=== PATIENT | female | born 1975 | race Caucasian/White ===

== ENCOUNTER 2018-03-25 17:27 | Emergency (ER) | payer OTHER ==
[~2018-03-25] VITALS: Wt 104.9 kg
[2018-03-25 17:35] VITALS: BP 122/66; PULSE 94; RESP 17
[2018-03-25] MEDS ORDERED: KETOROLAC 60 MG INJ IM STA (19:14)
[2018-03-25] MEDS ORDERED: IBUP-1542 PO (20:17)
[2018-03-25] MEDS ORDERED: CYCL10TA7 PO (20:17)
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
== END 2018-03-25 20:42 | disposition home or self-care (01) ==
LOC: FTE 17:27
DX: S33.5XXA Sprain of ligaments of lumbar spine, initial encounter (principal); S13.9XXA Sprain of joints and ligaments of unspecified parts of neck, initial encounter; V43.52XA Car driver injured in collision with other type car in traffic accident, initial encounter
CPT/HCPCS: 72040; 72100; 81003; 81025; 96372; J1885; Z7502

== ENCOUNTER 2018-11-15 23:19 | Emergency (ER) | payer OTHER ==
[~2018-11-15] VITALS: Ht 167.6 cm; Wt 101.1 kg
[~2018-11-15 23:19] MED LIST: CYCL10TA7 PO; IBUP-1542 PO; OXYC-279 PO
[2018-11-15 23:22] VITALS: Ht 167.6 cm; Wt 101.1 kg
[2018-11-16] MEDS ORDERED: LACTATED RINGER'S 1,000 ML IV STA (00:19)
[2018-11-16] MEDS ORDERED: ONDANSETRON 4 MG INJ IV STA (00:19)
[2018-11-16] MEDS ORDERED: LIDOCAINE/MYLANTA 40 ML BTL PO STA (00:19)
[2018-11-16] MEDS ORDERED: BELLADONNA/PHENOBARBITAL TAB PO STA (00:19)
[2018-11-16] MEDS ORDERED: KETOROLAC 15 MG INJ IV STA (00:19)
[2018-11-16 05:51] VITALS: BP 105/67; PULSE 72; RESP 18
[2018-11-16] MEDS ORDERED: OXYCODONE/ACETAMINOPHEN (5/325) TAB PO ONE (06:00)
== END 2018-11-16 05:54 | disposition home or self-care (01) ==
LOC: E/R 23:19
DX: N83.201 Unspecified ovarian cyst, right side (principal); D25.1 Intramural leiomyoma of uterus
CPT/HCPCS: 36415; 74176; 76830; 76856; 80053; 81001; 81025; 83690; 85025; 96374; 96375; 99285; J1885; J2405; J7120